=== PATIENT | male | born 1945 | race Caucasian/White ===

== ENCOUNTER → 2020-05-30 00:09 | Outpatient (CLI) | payer MEDICARE, SELFPAY ==
[2020-05-30 18:28] LABS: SARS-CoV-2 RNA PCR Negative
== END ==
PROVIDERS: Family Provider Family Medicine Adolescent Medicine; PCP Family Medicine Adolescent Medicine; Visit Provider Internal Medicine Gastroenterology
DX: Z01.812 Encounter for preprocedural laboratory examination (principal); Z20.822 Contact with and (suspected) exposure to COVID-19
CPT/HCPCS: C9803; U0003; U0005

== ENCOUNTER 2020-06-02 00:09 | Day surgery (SDC) | payer MEDICARE, SELFPAY ==
[2020-05-12 14:50] VITALS: BMI 25.1
[2020-06-02 08:22] LABS: Glucose Point of Care 64 (65-105)
[2020-06-02 08:30] VITALS: BP 117/81; PULSE 80; RESP 18; TEMP 36.7; O2SAT 100
[2020-06-02] MEDS: LACTATED RINGERS 1,000 ML 150 ML IV CONT (08:47)
--- NOTE | 2020-06-02 09:00 | WPDANESEPPF ---
Anes - Initial Pre Proc Eval Procedure: Operation Date: 06/02/20 09:30 Proposed Procedures p Colonoscopy - Adam Knight DO Date/Time: 06/02/20 09:00 Surgeon: Adam Knight DO Pre Op Diagnosis: Positive FIT Patient Data Age: 75 Gender: M Height: 1.78 m Weight: 77.4 kg Last Vital Signs Temp 36.7 C 06/02/20 08:30 Pulse 80 06/02/20 08:30 Resp 18 06/02/20 08:30 BP 117/81 06/02/20 08:30 Pulse Ox 100 06/02/20 08:30 Allergies Allergy/AdvReac Type Severity Reaction Status Date / Time erythromycin base Allergy Severe NAUSEA AND Verified 06/02/20 08:28 VOMITING Home Medications Medication Instructions Recorded Confirmed Type atorvastatin [Lipitor] 20 mg PO DAILY 03/29/19 05/12/20 History icosapent ethyl [Vascepa] 1 g PO BID 03/29/19 05/12/20 History ketoconazole TOPICAL 03/29/19 History metformin [Glucophage] 500 mg PO DAILY 03/29/19 05/12/20 History metoprolol succinate [Toprol XL] 100 mg PO DAILY 03/29/19 06/02/20 History Laboratory Tests 06/02/20 08:20 POC Capillary Glucose 64 mg/dl L mg/dl (65-105) Patient hx anesthesia problems: none Family hx anesthesia problems: none PMFSH Past Medical History Medical History (Updated 03/30/19 @ 00:00 by Sherine Garduno) Back pain Glaucoma HLD (hyperlipidemia) HTN (hypertension) Left wrist fracture Liver disease Migraines Prostate cancer Sciatica Surgical History Surgical History (Updated 03/29/19 @ 14:20 by Donny Lopez) Hx of cholecystectomy Hx of prostatectomy Hx of tonsillectomy Social History Social History (Updated 03/29/19 @ 14:20 by Donny Lopez) Smoking status: Never smoker Substance use type: does not use Living arrangements: with family Gender identity (if verbalized by the patient): Male Spiritual care concerns: No Anes - Eval Final PreProcedure Day of Procedure 06/02/20 09:00 Patient weight: normal Heart: regular rate and rhythm Lungs: clear to auscultation and normal air movement Airway: Mallampati scale class II Neurological: alert and oriented Last oral intake: >/= 8 hours ASA classification: III Emergent: no Anesthetic plan: proceed Anesthesia type and monitoring: general GIVS Informed Consent: The patient's anesthetic plan and its attendant risks and benefits were discussed with the patient/family/POA. Questions were solicited and answers provided to the satisfaction of the patient/family/POA.
[2020-06-02 10:23] VITALS: BP 86/50; PULSE 84; RESP 16; O2SAT 100
[2020-06-02 10:33] VITALS: BP 101/68; PULSE 89; RESP 18; O2SAT 100
[2020-06-02 10:43] VITALS: BP 113/78; PULSE 81; RESP 13; O2SAT 99
[2020-06-02 10:58] LABS: Glucose Point of Care 70 (65-105)
--- NOTE | 2020-06-23 07:57 | WPDGICN ---
GI Consult Note Consult date/time: 06/23/20 07:57 HPI: For reason for visit colonoscopy. Impression: Positive DNA based stool test. Recommendation: Colonoscopy. History: This very pleasant gentleman is here for colonoscopy. He has a positive BA stool DNA test. GI review systems is unremarkable. Physical examination: General: very pleasant patient in no acute distress. HEENT: Head was normocephalic sclerae is clear mouth without masses neck was supple. Heart: Rate rhythm regular without S3 or S4. Lungs: CTA. Abdomen: Soft with no guarding or rigidity. Bowel sounds were active. Neurologic: Cranial nerves 2 through 12 intact. No focal defects. No clonus. Musculoskeletal system: Revealed no joint tenderness or swelling no muscle atrophy. Extremities: Reveal no significant edema. Skin: Warm and dry with normal turgor. Mental status: intact. Patient is alert and oriented. Review of Systems Review of Systems: All systems reviewed & are unremarkable except as noted in HPI and below PMFSH Past Medical History Medical History (Updated 03/30/19 @ 00:00 by Sherine Garduno) Back pain Glaucoma HLD (hyperlipidemia) HTN (hypertension) Left wrist fracture Liver disease Migraines Prostate cancer Sciatica Surgical History Surgical History (Updated 03/29/19 @ 14:20 by Donny Lopez) Hx of cholecystectomy Hx of prostatectomy Hx of tonsillectomy Social History Social History (Updated 03/29/19 @ 14:20 by Donny Lopez) Smoking status: Never smoker Substance use type: does not use Living arrangements: with family Gender identity (if verbalized by the patient): Male Spiritual care concerns: No Meds Home Medications and Allergies Home Medications Medication Instructions Recorded Confirmed Type atorvastatin [Lipitor] 20 mg PO DAILY 03/29/19 05/12/20 History icosapent ethyl [Vascepa] 1 g PO BID 03/29/19 05/12/20 History ketoconazole TOPICAL 03/29/19 History metformin [Glucophage] 500 mg PO DAILY 03/29/19 05/12/20 History metoprolol succinate [Toprol XL] 100 mg PO DAILY 03/29/19 06/02/20 History Allergies Allergy/AdvReac Type Severity Reaction Status Date / Time erythromycin base Allergy Severe NAUSEA AND Verified 06/02/20 08:28 VOMITING
== END 2020-06-02 11:03 | disposition home or self-care (01) ==
PROVIDERS: Family Provider Family Medicine Adolescent Medicine; PCP Family Medicine Adolescent Medicine; Visit Provider Internal Medicine Gastroenterology
PROC: 0DJD8ZZ Inspection of Lower Intestinal Tract, Via Natural or Artificial Opening Endoscopic (ICD-10-PCS; CPT 45378; principal; 2020-06-02 09:30)
DX: R19.5 Other fecal abnormalities (principal); K52.9 Noninfective gastroenteritis and colitis, unspecified; D12.2 Benign neoplasm of ascending colon; D12.8 Benign neoplasm of rectum; K57.30 Diverticulosis of large intestine without perforation or abscess without bleeding; K64.8 Other hemorrhoids; I10 Essential (primary) hypertension; E78.5 Hyperlipidemia, unspecified; K76.9 Liver disease, unspecified; H40.9 Unspecified glaucoma; Z85.46 Personal history of malignant neoplasm of prostate
CPT/HCPCS: 45380; 45385; 82948; 88305; C9803; J2370; J2704; J7120; U0003; U0005

== ENCOUNTER 2020-11-03 15:24 | Outpatient (CLI) | payer MEDICARE, SELFPAY ==
--- NOTE | ~2020-11-03 | MR_ITS ---
EXAMINATION: MR brain/brain stem wo con DATE: 11/03/2020 16:29 INDICATION: Ataxia. TECHNIQUE: Magnetic resonance imaging (MRI) of the brain and brainstem was performed without intraven ous contrast. Sequences included sagittal and axial T1-weighted FSE, axial diffusion-weighted FS EPI, axial T2*-weighted GRE, axial T2-weighted FLAIR Propeller, and axial T2-weighted Propeller. Apparent diffusion coefficient (ADC) maps were created. COMPARISON: Head CT 03/29/2019 FINDINGS: There are scattered areas of nonspecific increased T2-weighted signal intensity in the cere bral white matter and tona. There is no intracranial hemorrhage, acute infarction, or abnormal intrac ranial mass lesion. The ventricles are normal in size. The orbits are normal. There is mild mucosal t hickening in the paranasal sinuses. The mastoid air cells are normal. IMPRESSION: 1. Mild nonspecific cerebral white matter disease and pontine disease, which likely represents chroni c small vessel ischemic disease. Reviewed, dictated and finalized at location A. IMPRESSION: 1. Mild nonspecific cerebral white matter disease and pontine disease, which chaim atwood represents chronic small vessel ischemic disease.
== END 2020-11-03 15:25 | disposition home or self-care (01) ==
LOC: ANHIMG 15:25
PROVIDERS: PCP Family Medicine Adolescent Medicine; Visit Provider Psychiatry & Neurology Neurology
DX: R27.0 Ataxia, unspecified (principal); R93.0 Abnormal findings on diagnostic imaging of skull and head, not elsewhere classified
CPT/HCPCS: 70551

== ENCOUNTER 2021-01-04 09:56 | Outpatient (CLI) | payer MEDICARE, SELFPAY ==
--- NOTE | 2021-01-04 11:30 | NEURO_ITS ---
Impression: # Complains of gait dysfunction with ataxia. # Neuropathy involving lower extremities. # Needle/EMG exam revealed mild neurogenic changes. # Clinical correlation recommended. Nerve Conduction Studies Anti Sensory Summary Table Stim Site NR Peak (ms) P-T Amp (?V) Site1 Site2 Delta-P (ms) Dist (cm) Freddy (m/s) Left Sup Fibular Anti Sensory (Ant Lat Mall) 14 cm 3.4 11.6 14 cm Ant Lat Mall 3.4 16.0 47 Right Sup Fibular Anti Sensory (Ant Lat Mall) 14 cm 3.7 11.0 14 cm Ant Lat Mall 3.7 16.0 43 Left Sural Anti Sensory (Lat Mall) Calf 4.2 5.3 Calf Lat Mall 4.2 16.0 38 Right Sural Anti Sensory (Lat Mall) Calf 3.5 16.0 Calf Lat Mall 3.5 16.0 46 Motor Summary Table Stim Site NR Onset (ms) O-P Amp (mV) Site1 Site2 Delta-0 (ms) Dist (cm) Freddy (m/s) Left Peroneal Motor (Vastus Med) Ankle 5.2 2.0 Popit Ankle 11.4 42.0 37 Popit 16.6 2.0 B Fib Ankle 8.6 0.0 Right Peroneal Motor (Vastus Med) Ankle 5.2 0.2 Popit Ankle 11.4 41.0 36 Popit 16.6 0.2 Left Tibial Motor (Abd Pedroza Brev) Ankle 5.6 0.4 Knee Ankle 11.7 43.0 37 Knee 17.3 0.3 Right Tibial Motor (Abd Pedroza Brev) Ankle 5.9 0.8 Knee Ankle 11.4 43.0 38 Knee 17.3 0.4 F Wave Studies NR F-Lat (ms) L-R F-Lat (ms) Left Peroneal (Mrkrs) (EDB) 60.12 1.64 Right Peroneal (Mrkrs) (EDB) 61.75 1.64 Left Tibial (Mrkrs) (Abd Hallucis) 61.02 0.82 Right Tibial (Mrkrs) (Abd Hallucis) 61.83 0.82 EMG Side Muscle Nerve Root Ins Act Fibs Amp Dur Recrt Comment Right AntTibialis Dp Br Fibular L4-5 Nml Nml Nml Nml Nml Right Gastroc Tibial S1-2 Nml Nml Nml Nml Nml Right Fibularis Long Sup Br Fibular L5-S1 Nml Nml Nml Nml Nml Right Flex Dig Long Tibial L5-S2 Nml Nml Nml Nml Nml Right Ext Dig Brev Dp Br Fibular L5, S1 Nml Nml Nml >12ms Reduced Left AntTibialis Dp Br Fibular L4-5 Nml Nml Nml Nml Nml Left Gastroc Tibial S1-2 Nml Nml Nml Nml Nml Left Fibularis Long Sup Br Fibular L5-S1 Nml Nml Nml Nml Nml Left Flex Dig Long Tibial L5-S2 Nml Nml Nml Nml Nml Left Ext Dig Brev Dp Br Fibular L5, S1 Nml Nml Nml >12ms Reduced Right QuadratusFem QuadFemoris L4-5, S1 Nml Nml Nml Nml Nml Left QuadratusFem QuadFemoris L4-5, S1 Nml Nml Nml Nml Nml Right Ext Dig Long Dp Br Fibular L5-S1 Nml Nml Nml >12ms Reduced Left Ext Dig Long Dp Br Fibular L5-S1 Nml Nml Nml >12ms Reduced MTDD
== END 2021-01-04 09:57 | disposition home or self-care (01) ==
LOC: ANHNEURO 10:00
PROVIDERS: PCP Family Medicine Adolescent Medicine; Visit Provider Psychiatry & Neurology Neurology
DX: R27.0 Ataxia, unspecified (principal); G57.93 Unspecified mononeuropathy of bilateral lower limbs
CPT/HCPCS: 95886; 95910

== ENCOUNTER → 2021-04-10 09:49 | Outpatient (CLI) | payer MEDICARE, SELFPAY ==
--- NOTE | ~2021-04-10 | XR_ITS ---
EXAMINATION: XR lumbar spine 2-3V DATE: 04/10/2021 10:13 INDICATION: Right sacroiliac joint pain TECHNIQUE: Anteroposterior and lateral views of the lumbar spine, and cone-down lateral view of the l umbosacral junction were obtained. COMPARISON: Lumbar spine radiographs dated 08/10/2014 and MRI dated 10/08/2014 FINDINGS: 15 degrees lumbar dextroscoliosis and slight upper lumbar kyphosis. 3 mm retrolisthesis L4 on L5 and 3 mm anterolisthesis L5 on S1. Vertebral body heights are normal. Severe disc height loss with osseou s fusion at L2-L3. Additional moderate to severe left side predominant disc height loss at L3-L4 and moderate to severe right-sided predominant disc height loss at L4-L5.Moderate disc height loss at L1- L2. Moderate right-sided and mild left-sided sacroiliac osteoarthritis. No evident erosions to sugges t an inflammatory synovitis. Sacral arches are intact. No evident fracture. Cholecystectomy clips in right upper quadrant. IMPRESSION: 1. Mild lumbar dextroscoliosis with interval progression of severe spondylosis. 2. 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 Reviewed, dictated and finalized at location . [employer]
== END ==
PROVIDERS: PCP Family Medicine Adolescent Medicine; Visit Provider Family Medicine Adolescent Medicine
DX: M53.3 Sacrococcygeal disorders, not elsewhere classified (principal); M41.9 Scoliosis, unspecified; M47.816 Spondylosis without myelopathy or radiculopathy, lumbar region
CPT/HCPCS: 72100

== ENCOUNTER 2023-06-07 09:19 | Outpatient (CLI) | payer MEDICARE, SELFPAY ==
[2023-06-07 10:19] LABS: Basophils Percent Auto 0.4 % (0.2-1.2); Eosinophils Absolute Auto 0.1 K/mm3 (0-0.3); Eosinophils Percent Auto 1.6 % (0-4.4); Hemoglobin 15.9 g/dL (14.0-18.0); Immature Granulocyte Absolute 0.01 K/mm3 (0.00-0.031); Immature Granulocyte Percent A 0.1 % (0-0.5); Lymphocytes Absolute Auto 2.86 K/mm3 (0.9-3.2); Lymphocytes Percent Auto 42.2 % (18.3-44.2); Mean Corpuscular HGB Conc 34.6 g/dl (32-36); Mean Corpuscular Hemoglobin 32.2 pg (26-34); Mean Corpuscular Volume 93.1 fl (80-100); Mean Platelet Volume 9.3 fl (7.4-10.4); Monocytes Absolute Auto 0.6 K/mm3 (0.1-0.6); Monocytes Percent Auto 9.5 % (2.6-8.5); Neutrophils Absolute Auto 3.1 K/mm3 (1.3-6.7); Neutrophils Percent Auto 46.2 % (45.5-73.1); Platelet Count Result 226 k/mm3 (150-375); Red Blood Count 4.94 M/mm3 (4.6-6.20); White Blood Count 6.8 K/mm3 (4.5-10.0)
[2023-06-07 10:49] LABS: Alanine Aminotransferase 25 U/L (6-50); Albumin Level 4.3 g/dL (3.5-5.1); Alkaline Phosphatase 98 U/L (38-126); Anion Gap 5 mmol/L (8-16); Aspartate Amino Transferase 29 U/L (17-59); Bilirubin,Total 2.6 mg/dL (0.2-1.3); Blood Urea Nitrogen 14 mg/dL (9-20); CRP < 0.5 mg/dL (<1.0); Calcium 9.1 mg/dL (8.4-10.2); Carbon Dioxide 30 mmol/L (22-30); Chloride 101 mmol/L (98-107); Estimated Glomerular Filt Rate > 60; Glucose 109 mg/dL (65-110); Potassium 4.2 mmol/L (3.4-5.0); Sodium 136 mmol/L (137-145)
[2023-06-07 10:52] LABS: Erythrocyte Sedimentation Rate 12 mm/hr (0-20)
[2023-06-07 11:25] LABS: HIV 1/2 Ab P24 Ag Result Negative (Negative)
[2023-06-11 03:44] LABS: Angiotensin Converting Enzyme 48.4 U/L (9-67)
== END 2023-06-07 09:20 | disposition home or self-care (01) ==
PROVIDERS: PCP Family Medicine Adolescent Medicine; Visit Provider Student in an Organized Health Care Education/Training Program
DX: G62.9 Polyneuropathy, unspecified (principal); R27.0 Ataxia, unspecified
CPT/HCPCS: 36415; 80053; 82164; 85025; 85652; 86140; 86703; G0432

== ENCOUNTER 2023-07-23 15:11 | Outpatient (CLI) | payer MEDICARE, SELFPAY ==
--- NOTE | ~2023-07-23 | XR_ITS ---
XR lumbar spine 6V w bending DATE: 07/23/2023 15:37 INDICATION: Back pain TECHNIQUE: Flexion and extension lateral views. AP, lateral, coned lateral lumbosacral and bilateral oblique views. COMPARISON: 04/10/2021 lumbar spine FINDINGS: There is prominent osteopenia. There is rotatory dextroscoliosis of the lower thoracic and lumbar spine, measuring 16 degrees from T 12 to L3. There is severe degenerative disc disease at L1-2, L2-3, L3-4 and L4-5. There is associated mild retr olisthesis at L3-4 and L4-5. L5-S1 interspace is relatively preserved. There is degenerative change at the apophyseal joints with associated grade 1 anterolisthesis at L5-S 1. No fracture or bone destruction is evident. The included lower thoracic and lumbar pedicles appear in tact The sacroiliac joints are intact. Surgical clips, right upper quadrant, consistent with cholecystectomy. IMPRESSION: Osteopenia Rotatory dextroscoliosis of the thoracolumbar spine Severe degenerative disc disease from L1-2 through L4-5 with associated mild retrolisthesis at L3-4 a nd L4-5 Degenerative changes apophyseal joints with associated grade 1 anterolisthesis at L5-S1 Reviewed, dictated and finalized at location B. IMPRESSION: Osteopenia Rotatory dextroscoliosis of the thoracolumbar spine Severe degenerative disc disease from L1-2 through L4-5 with associated mild re trolisthesis at L3-4 and L4-5 Degenerative changes apophyseal joints with associated grade 1 anterolisthesis at L5-S1
== END 2023-07-23 15:12 ==
PROVIDERS: PCP Family Medicine Adolescent Medicine; Visit Provider Family Medicine Adolescent Medicine
DX: M85.88 Other specified disorders of bone density and structure, other site (principal); M41.85 Other forms of scoliosis, thoracolumbar region; M51.36 Other intervertebral disc degeneration, lumbar region; M43.16 Spondylolisthesis, lumbar region; M47.817 Spondylosis without myelopathy or radiculopathy, lumbosacral region
CPT/HCPCS: 72114

== ENCOUNTER 2024-04-29 08:07 | Outpatient (CLI) | payer MEDICARE, SELFPAY ==
--- NOTE | ~2024-04-29 | MR_ITS ---
EXAMINATION: MR brain IAC wo/w con DATE: 04/29/2024 09:26 INDICATION: Ataxia, unspecified. TECHNIQUE: Magnetic resonance imaging (MRI) of the brain, brainstem, and internal auditory canals was performed without and with 17 mL MultiHance intravenous contrast. COMPARISON: Brain MRI 11/03/2020, head CT 03/29/2019 FINDINGS: There are scattered areas of nonspecific increased T2-weighted signal intensity in the cere bral white matter and tona. There is no intracranial hemorrhage, acute infarction, or abnormal intrac ranial mass lesion. The ventricles are normal in size. There is mild mucosal thickening in the parana jennifer sinuses. The orbits are normal. The internal auditory canals, inner is, tympanic cavities, and ma stoid air cells are normal. IMPRESSION: 1. Moderate nonspecific cerebral white matter disease and pontine disease, which likely represents ch ronic small vessel ischemic disease, worsened from 11/03/2020. Reviewed, dictated and finalized at location A. [employer] OPERATOR IMPRESSION: 1. Moderate nonspecific cerebral white matter disease and pontine disease, whic h likely represents chronic small vessel ischemic disease, worsened from 021.
[2024-04-30 17:54] LABS: Red Blood Cell Folate 447 ng/mL RBC (>280)
[2024-05-03 00:24] LABS: Acetylcholine Rec Block Ab <15 (<15)
[2024-05-03 23:23] LABS: Acetyl Rec Binding Ab <0.30 nmol/L
[2024-05-04 02:48] LABS: Methylmalonic Acid 125 nmol/L (69-390)
== END 2024-04-29 08:08 | disposition home or self-care (01) ==
PROVIDERS: PCP Family Medicine Adolescent Medicine; Visit Provider Psychiatry & Neurology Neurology
DX: R27.0 Ataxia, unspecified (principal); G62.9 Polyneuropathy, unspecified; H81.10 Benign paroxysmal vertigo, unspecified ear; E11.42 Type 2 diabetes mellitus with diabetic polyneuropathy; H02.409 Unspecified ptosis of unspecified eyelid
CPT/HCPCS: 36415; 70553; 82607; 82747; 83519; 83921; 86041; 86042; 86043; A9577